=== PATIENT | female | born 1995 | race Caucasian/White ===

== ENCOUNTER 2018-05-14 22:32 | Emergency (ER) | payer BC, OTHER ==
[~2018-05-14] VITALS: Ht 152.4 cm; Wt 59.0 kg
[2018-05-14 22:40] VITALS: BP_SYST 120
[2018-05-14 23:18] VITALS: BP_SYST 118
== END 2018-05-14 23:18 | disposition home or self-care (01) ==
LOC: SED 22:32
DX: H18.821 Corneal disorder due to contact lens, right eye (principal); Z88.0 Allergy status to penicillin; Z88.8 Allergy status to other drugs, medicaments and biological substances
CPT/HCPCS: 99283

== ENCOUNTER 2020-08-11 20:00 | Inpatient (IN) | payer BC, SELFPAY ==
[~2020-08-11] VITALS: Ht 152.4 cm; Wt 54.4 kg
[2020-08-11 20:10] VITALS: BP_SYST 123
[2020-08-11 20:38] LABS: BILIRUBIN,URINE NEGATIVE (NEGATIVE); BLOOD, URINE NEGATIVE (NEGATIVE); CLARITY/URINE CLEAR (CLEAR); COLOR,URINE YELLOW (YELLOW); GLUCOSE,URINE NEGATIVE (NEGATIVE); KETONES,URINE 3+ (NEGATIVE); LEUKOCYTE ESTERASE ,URINE NEGATIVE (NEGATIVE); NITRITE, URINE NEGATIVE (NEGATIVE); PH,URINE 6.5 (5.0-8.0); PROTEIN URINE NEGATIVE (NEGATIVE); UROBILINOGEN,URINE 0.2 (0.2-1.0)
[2020-08-11] MEDS ORDERED: NACL 0.9% 1,000 ML IV ONE ×2 (21:00)
[2020-08-11] MEDS ORDERED: IBUPROFEN 600 MG TABLET PO ONE (21:00)
[2020-08-11] MEDS ORDERED: cefTRIAXone 1 GM IVPB PREMIX 50 ML IV ONE (21:00)
[2020-08-11 21:45] LABS: BASOPHILS # (AUTO) 0.1 K/uL (0.0-0.2); BASOPHILS % (AUTO) 0.4 % (0.0-2.0); CALCIUM 8.6 mg/dL (8.4-11.0); CREATININE 0.91 mg/dL (0.55-1.30); HEMATOCRIT 36.4 % (36-48); HEMOGLOBIN 12.2 g/dL (12.0-16.0); LYMPHOCYTES # (AUTO) 0.7 K/uL (1.0-5.5); LYMPHOCYTES % (AUTO) 6.5 % (20.5-51.5); MEAN CORPUSCULAR HEMOGLOBIN 31 pg (27-31); MEAN CORPUSCULAR HGB CONC 34 % (32-36); MEAN CORPUSCULAR VOLUME 93 fL (79.0-98.0); MONOCYTES # (AUTO) 0.7 K/uL (0.0-1.0); MONOCYTES % (AUTO) 6.4 % (1.7-9.3); NEUTROPHILS # (AUTO) 9.9 K/uL (1.8-7.7); NEUTROPHILS % (AUTO) 86.7 % (40.0-70.0); PLATELET COUNT (AUTO) 139 K/uL (130-430); POTASSIUM 3.4 mmol/L (3.5-5.1); RED BLOOD CELL COUNT(AUTO) 3.92 MIL/uL (4.2-6.2); RED CELL DISTRIBUTION WIDTH 12.9 % (9.0-15.0); WHITE BLOOD COUNT (AUTO) 11.4 K/uL (4.8-10.8)
[2020-08-11 21:51] LABS: ALBUMIN 3.8 g/dL (3.4-4.8); TOTAL BILIRUBIN 0.8 mg/dL (0.0-1.0)
[2020-08-11] MEDS ORDERED: CEL20 PO (22:11)
[2020-08-11] MEDS ORDERED: ACETAMINOPHEN 500 MG TABLET ONE (22:14)
[2020-08-11] MEDS ORDERED: ACETAMINOPHEN 500 MG TABLET PO ONE (22:15)
[2020-08-11] MEDS ORDERED: DOXYCYCLINE HYCLATE 100 MG CAPSULE PO ONE (22:15)
[2020-08-11] MEDS ORDERED: DOXY100C PO ×2 (23:20)
[2020-08-11] MEDS ORDERED: NITR-85 PO (23:37)
[2020-08-11] MEDS ORDERED: D5/0.45 NS 1,000 ML IV ONE (23:45)
[2020-08-12 00:15] VITALS: BP_SYST 95
[2020-08-12] MEDS ORDERED: NALOXONE HCL 0.4 MG/ML AMP (NARCAN) IVP PRN ×2 (06:30)
[2020-08-12] MEDS ORDERED: HYDROcodone/ACETAMIN 5-325 MG TAB (NORCO/ VICODIN) PO PRN (06:30)
[2020-08-12] MEDS ORDERED: HYDROcodone/ACETAMIN 10-325 MG TAB PO PRN (06:30)
[2020-08-12] MEDS ORDERED: ACETAMINOPHEN 325 MG TABLET PO PRN (06:30)
[2020-08-12] MEDS ORDERED: LORazepam 2 MG/ML VIAL IVP PRN (06:30)
[2020-08-12 08:30] VITALS: BP_SYST 108
[2020-08-12] MEDS: PHENAZOPYRIDINE HCL 100 MG TABLET PO SCH ×3 (09:13→18:49)
[2020-08-12] MEDS: D5/0.45 NS 1,000 ML IV SCH ×3 (10:30→21:18)
[2020-08-12] MEDS: ONDANSETRON HCL 4 MG/2 ML VIAL IVP PRN ×3 (11:47→21:19)
[2020-08-12] MEDS: ACETAMINOPHEN 325 MG TABLET PO PRN ×2 (11:57→17:33)
[2020-08-12 12:13] VITALS: BP_SYST 110; BP_SYST 116
[2020-08-12 15:50] VITALS: BP_SYST 105
[2020-08-12] MEDS: GENTAMICIN 80 MG/ ISO-OSM 100 ML PREMIX IV SCH (16:11)
[2020-08-12 20:00] VITALS: BP_SYST 103
[2020-08-12] MEDS: cefTRIAXone 1 GM IVPB PREMIX 50 ML IV SCH (21:07)
[2020-08-13 01:13] VITALS: BP_SYST 113
[2020-08-13] MEDS: GENTAMICIN 80 MG/ ISO-OSM 100 ML PREMIX IV SCH ×2 (03:34→15:39)
[2020-08-13 06:26] LABS: BASOPHILS % (AUTO) 0.5 % (0.0-2.0); EOSINOPHILS % (AUTO) 0.4 % (0.0-4.0); HEMATOCRIT 30.6 % (36-48); HEMOGLOBIN 10.2 g/dL (12.0-16.0); LYMPHOCYTES # (AUTO) 1.5 K/uL (1.0-5.5); LYMPHOCYTES % (AUTO) 25.2 % (20.5-51.5); MEAN CORPUSCULAR HEMOGLOBIN 31 pg (27-31); MEAN CORPUSCULAR HGB CONC 33 % (32-36); MEAN CORPUSCULAR VOLUME 93 fL (79.0-98.0); MONOCYTES # (AUTO) 0.7 K/uL (0.0-1.0); MONOCYTES % (AUTO) 11.1 % (1.7-9.3); NEUTROPHILS # (AUTO) 3.8 K/uL (1.8-7.7); NEUTROPHILS % (AUTO) 62.8 % (40.0-70.0); PLATELET COUNT (AUTO) 98 K/uL (130-430); RED BLOOD CELL COUNT(AUTO) 3.28 MIL/uL (4.2-6.2)
[2020-08-13 06:38] LABS: ALBUMIN 2.9 g/dL (3.4-4.8); CALCIUM 7.9 mg/dL (8.4-11.0); CREATININE 0.66 mg/dL (0.55-1.30); PHOSPHORUS 2.7 mg/dL (2.7-4.5); POTASSIUM 3.7 mmol/L (3.5-5.1); TOTAL BILIRUBIN 0.2 mg/dL (0.0-1.0)
[2020-08-13 07:33] LABS: C-REACTIVE PROTEIN QUANT 7.4 mg/dL (0-0.5)
[2020-08-13 08:00] VITALS: BP_SYST 90
[2020-08-13] MEDS: PHENAZOPYRIDINE HCL 100 MG TABLET PO SCH ×3 (08:39→18:15)
[2020-08-13] MEDS: D5/0.45 NS 1,000 ML IV SCH ×2 (08:39→21:48)
[2020-08-13 10:26] LABS: ERYTHROCYTE SEDIMENTATION RATE 43 MM/HR (0-20)
[2020-08-13 10:31] LABS: FREE T4 (FREE THYROXINE) 0.7 ng/dL (0.6-1.6); THYROID STIMULATING HORMONE 1.07 uIu/mL (0.34-4.82)
[2020-08-13 11:24] VITALS: BP_SYST 117
[2020-08-13 15:39] VITALS: BP_SYST 111
[2020-08-13 20:16] VITALS: BP_SYST 106
[2020-08-13] MEDS: cefTRIAXone 1 GM IVPB PREMIX 50 ML IV SCH (21:04)
[2020-08-14 00:09] VITALS: BP_SYST 115
[2020-08-14] MEDS: GENTAMICIN 80 MG/ ISO-OSM 100 ML PREMIX IV SCH (05:46)
[2020-08-14 06:26] LABS: BASOPHILS % (AUTO) 0.6 % (0.0-2.0); EOSINOPHILS # (AUTO) 0.1 K/uL (0.0-0.4); EOSINOPHILS % (AUTO) 1.3 % (0.0-4.0); HEMOGLOBIN 10.6 g/dL (12.0-16.0); LYMPHOCYTES # (AUTO) 1.4 K/uL (1.0-5.5); LYMPHOCYTES % (AUTO) 31.9 % (20.5-51.5); MEAN CORPUSCULAR HEMOGLOBIN 31 pg (27-31); MEAN CORPUSCULAR HGB CONC 33 % (32-36); MEAN CORPUSCULAR VOLUME 94 fL (79.0-98.0); MONOCYTES # (AUTO) 0.4 K/uL (0.0-1.0); MONOCYTES % (AUTO) 8.6 % (1.7-9.3); NEUTROPHILS # (AUTO) 2.5 K/uL (1.8-7.7); NEUTROPHILS % (AUTO) 57.6 % (40.0-70.0); PLATELET COUNT (AUTO) 138 K/uL (130-430); RED BLOOD CELL COUNT(AUTO) 3.42 MIL/uL (4.2-6.2); RED CELL DISTRIBUTION WIDTH 13.1 % (9.0-15.0); WHITE BLOOD COUNT (AUTO) 4.3 K/uL (4.8-10.8)
[2020-08-14 07:01] LABS: CALCIUM 8.6 mg/dL (8.4-11.0); CREATININE 0.6 mg/dL (0.55-1.30); POTASSIUM 3.3 mmol/L (3.5-5.1)
[2020-08-14 07:32] LABS: C-REACTIVE PROTEIN QUANT 3.8 mg/dL (0-0.5)
[2020-08-14 07:40] VITALS: BP_SYST 97
[2020-08-14 07:40] LABS: ERYTHROCYTE SEDIMENTATION RATE 43 MM/HR (0-20)
[2020-08-14] MEDS: D5/0.45 NS 1,000 ML IV SCH (08:30)
[2020-08-14] MEDS: PHENAZOPYRIDINE HCL 100 MG TABLET PO SCH ×2 (09:47→12:57)
[2020-08-14] MEDS ORDERED: NITR-85 PO (11:31)
[2020-08-14] MEDS ORDERED: POTASSIUM CHLORIDE 20 MEQ TAB.PRT.SR PO ONE (12:15)
[2020-08-14 12:23] VITALS: BP_SYST 93
[2020-08-14 14:03] VITALS: BP_SYST 93
== END 2020-08-14 14:50 | disposition home or self-care (01) | DRG 872 ==
LOC: SED 20:00 → STU 23:38 → SMU 08-12 18:12
PROVIDERS: ADMIT Preventive Medicine Preventive Medicine/Occupational Environmental Medicine; ATTEND Preventive Medicine Preventive Medicine/Occupational Environmental Medicine
DX: A41.9 Sepsis, unspecified organism (principal); N10 Acute pyelonephritis; D64.9 Anemia, unspecified; E87.6 Hypokalemia; Z20.822 Contact with and (suspected) exposure to COVID-19; E83.51 Hypocalcemia; E88.09 Other disorders of plasma-protein metabolism, not elsewhere classified; R73.9 Hyperglycemia, unspecified; A64 Unspecified sexually transmitted disease; Z87.440 Personal history of urinary (tract) infections; Z88.0 Allergy status to penicillin; Z88.8 Allergy status to other drugs, medicaments and biological substances
CPT/HCPCS: 36415; 76770; 80048; 80053; 81003; 83605; 83735-TC; 84100-TC; 84439; 84443-TC; 85025; 85651-TC; 86140; 86592; 87040-TC; 87086; 87491; 87591; 93005; 93306; 96361; 96365; 99291; G0378; J0696; J1580; J2405; J7030